=== PATIENT | female | born 1960 | race Caucasian/White ===

== ENCOUNTER → 2016-08-07 | Outpatient (CLI) | payer BC ==
--- NOTE | 2016-08-07 14:41 | DX ---
Chest, PA and Lateral History: Cough and right rib pain, R05, dyspnea COMPARISON: November 06, 2007 Findings: Lungs are clear, without infiltrate or consolidation. Heart size is normal. There is no elfego nopathy or mass lesion. There is no pleural effusion or pneumothorax. No acute right rib fracture zaria ntified. The thoracic spine is normally aligned. There is chronic mild marginal disk space spurring i n the upper thoracic spine. There is no paraspinal stripe widening. Impression: Nothing acute identified. Results called to Mare Moss, as requested.
== END ==
LOC: BMCIMAGING 14:06
PROVIDERS: ATTEND Internal Medicine
DX: R05 Cough (principal)

== ENCOUNTER → 2016-08-15 | Outpatient (CLI) | payer BC, OTHER ==
--- NOTE | 2016-08-15 16:17 | DX ---
PA and Lateral Chest X-ray 1556 hours History: Pleuritic type chest pain. Findings: Heart size and pulmonary vasculature are normal. The lungs are clear without infiltrates or effusions. There is no pneumothorax. The osseous structures are intact. Impression: Normal chest x-ray.
== END ==
LOC: BMCIMAGING 15:55
PROVIDERS: ATTEND Internal Medicine
DX: R07.1 Chest pain on breathing (principal)

== ENCOUNTER → 2016-08-30 | Outpatient (CLI) | payer BC | LOC: FIMAGING 13:04 | DX: Z12.31 Encounter for screening mammogram for malignant neoplasm of breast (principal) | CPT/HCPCS: G0202 ==

== ENCOUNTER 2017-09-16 17:27 | Emergency (ER) | payer OTHER ==
[2017-09-16 17:38] VITALS: PULSE 60; RESP 16; TEMP 97.9
--- NOTE | 2017-09-16 18:35 | EDPHY ---
HPI/HX/ROS/PE/MDM Narrative: CHIEF COMPLAINT: Left leg DVT. HISTORY OF PRESENT ILLNESS: This patient is a 57 y/o female s/p left knee ACL repair 09/13/17 presenting for evaluation of DVT diagnosed today by ultrasound. She has family history of DVT in her mother, also after surgery. Today, she was evaluated by her orthopedic surgeon, Dr. Garcia, for left leg pain and swelling. She was referred for an ultrasound, and the study read this afternoon by Dr. Gutierrez reveals three DVTs : in the proximal femoral vein, the popliteal vein, and one of the two peroneal veins in the proximal calf. Otherwise, the patient has had a routine postoperative course. She is no longer taking narcotic medications due to side effects. She endorses some mild nausea. Additionally, she has had some mild low back pain. No upper back pain, chest pain, shortness of breath, cold or cough symptoms, or other associated symptoms. The patient denies any personal or family history of clotting disorders. There is family history of stroke in both of her parents. No fever, chills, palpitations, vomiting, diarrhea, urinary complaints, headache, lightheadedness. REVIEW OF SYSTEMS: Aside from elements discussed in the HPI, a comprehensive 10-point review of systems was reviewed and is negative. PAST MEDICAL HISTORY: Thyroid disorder. SOCIAL HISTORY: at bedside. . Lives in [place]. PCP: Dr. Carreno. VITAL SIGNS: Reviewed by me GENERAL: Well-developed, well-nourished, resting comfortably in no respiratory distress. HEENT: Benign LUNGS: Clear to auscultation bilaterally. CARDIAC: Regular rate and rhythm, no rubs, murmurs or gallops. ABDOMEN: Soft, nontender. BACK: No CVA tenderness. EXTREMITIES: Left leg: Calf swollen but soft. Thigh moderately swollen. Knee diffusely swollen. Surgical site to left knee appears well-healing, no erythema , warmth, or drainage. Foot is warm, pedal pulses equal. Range of motion is normal throughout. NEURO: Alert and oriented, grossly nonfocal. SKIN: Warm and dry, no rash. PSYCHIATRIC: Normal mentation, no agitation. Portions of this note were transcribed by a bacteriologist medical. I personally performed a history, physical exam, medical decision making, and confirmed accuracy of information the transcribed note. ED Course: 57 y/o female s/p left ACL repair 09/12/17 presents with multiple left lower extremities diagnosed by ultrasound today. Left calf and thigh are swollen but soft. Left knee swollen with well-healing surgical incisions, no signs of infection. Plan to discharge with prescription for Xarelto 15mg BID. Plan to consult with the patient's orthopedic surgeon and primary care provider. 18:[address] Garcia, the patient's orthopedic surgeon. He is comfortable with outpatient followup for this patient with her primary care provider, Dr. Carreno. 19:[address] Carreno, the patient's primary care provider. The patient will follow up with her tomorrow. Plan to discharge home in good condition as above with Xarelto. MDM: Differential diagnosis for the patient's primary complaint of leg swelling was considered including but not limited to cellulitis, hypoalbuminemia, congestive heart failure, cor pulmonale, chronic venous stasis and DVT. - Data Points Imaging Results: Imaging Impressions Extremity Venous Study 09/16/17 16:45 Impression: 1. Short segment of nonocclusive deep venous thrombosis in the proximal femoral vein in the groin. 2. Deep venous thrombosis in the popliteal vein and one of the two peroneal veins in the proximal calf. Findings discussed with physician, Homer Garcia M.D., on September 16, 2017 at 1720. E:RH/amm Medications Given: Discontinued Medications Rivaroxaban (Xarelto) 15 mg PO EDNOW ONE Stop: 09/16/17 18:47 Last Admin: 09/16/17 19:14 Dose: 15 mg General Initial Vital Signs: Initial Vital Signs Temperature (C) 36.6 C 09/16/17 17:34 Heart Rate 60 09/16/17 17:34 Respiratory Rate 16 09/16/17 17:34 Blood Pressure 145/86 H 09/16/17 17:34 O2 Sat (%) 96 09/16/17 17:34 O2 Delivery Mode Room Air Allergies/Adverse Reactions: prednisone Allergy (Intermediate, Verified 09/16/17 17:38) swelling tongue prochlorperazine [From Compazine] Allergy (Intermediate, Verified 09/16/17 17:38 ) swelling tongue Home Medications: Medication Instructions Recorded Levothyroxine [Synthroid 100 mcg 100 mcg PO DAILY06 09/16/17 (*)] Rivaroxaban [Xarelto 15mg (*)] 15 mg PO BID 21 Days #42 tab 09/16/17 Departure - Departure Disposition: Home, Routine, Self-Care Clinical Impression: DVT (deep venous thrombosis) Condition: Good Instructions: Deep Vein Thrombosis (ED) Additional Instructions: 1. Take Xarelto as prescribed. 2. Follow up with Dr. Carreno this week for continued evaluation and management of your anticoagulant medication. 3. Return to the emergency department for increased pain or swelling in your leg , chest pain, back pain, difficulty breathing, fever, or other worsening of condition. 4. Continue to follow up with Dr. Garcia as scheduled. Referrals: Glenda Carreno MD [Primary Care Provider] - As per Instructions Homer Garcia MD [Medical Doctor] - As per Instructions Prescriptions: Rivaroxaban [Xarelto 15mg (*)] 15 mg PO BID 21 Days #42 tab Report Scribed for: Claudine Rodriguez Report Scribed by: Luma Fernández Date of Report: 09/16/17 Time of Report: 18:35
[2017-09-16] MEDS ORDERED: RIVAROXABAN 15 MG TAB PO ONE (18:46)
[2017-09-16 19:16] VITALS: BP 133/81; O2SAT 95
== END 2017-09-16 19:29 | disposition home or self-care (01) ==
DX: I82.432 Acute embolism and thrombosis of left popliteal vein (principal)

== ENCOUNTER 2017-09-19 16:21 | Emergency (ER) | payer OTHER ==
[2017-09-19 16:35] VITALS: RESP 18
--- NOTE | 2017-09-19 17:12 | EDPHY ---
General Time Seen by Provider: 09/19/17 16:59 Narrative: CHIEF COMPLAINT: Increasing swelling and pain, known DVTs HISTORY OF PRESENT ILLNESS: Patient complains of acute worsening of swelling in the left lower leg. She had an ACL repair performed on Saturday. She developed DVT, diagnosed on Saturday. She was started on Xarelto 15 mg twice daily on Saturday night. She has been taking this as prescribed and continued her range of motion, weight-bearing as instructed and physical therapy this week. Yesterday evening she noted sudden increase worsen of the swelling after PT. This continued to increase over the evening and today. She now has difficulty ambulating due to the swelling and pain. No numbness or tingling. The pain and swelling is worse with weight- bearing and ambulation. There is minimal improvement when resting and with elevation. No chest pain or shortness of breath. No fever chills. No change in temperature or sensation to the left lower extremity. No fall, trauma or injury. No other associated complaints or modifying factors REVIEW OF SYSTEMS: Ten systems reviewed and are negative unless otherwise noted in the HPI PCP: Dr. Glenda Carreno SPECIALISTS: Dr. Garcia, Orthopedics PAST MEDICAL HISTORY: Hypothyroid, orthopedic injuries PAST SURGICAL HISTORY: Postop day 6 from left ACL repair SOCIAL HISTORY: Nonsmoker. Occasional alcohol use. Works as an artist FAMILY HISTORY: Noncontributory EXAMINATION: General Appearance: Alert, no distress Head: normocephalic, atraumatic Eyes: Pupils equal and round, no conjunctival pallor or injection ENT, Mouth: Mucous membranes moist Neck: Normal inspection, supple, non-tender Respiratory: Lungs are clear to auscultation Cardiovascular: Regular rate and rhythm. Symmetric radial pulses. Right DP pulses 2+, left DP pulses 1+. Right PT pulse 2 +, left PT pulse 1 +. Neurological: A&O, nonfocal Skin: Warm and dry, no rash. No petechiae or purpura. Arthroscopic Surgical incisions on the left knee are clean, dry, intact and covered by Steri-Strips. Extremities: Moderate tenderness of the left knee, thigh, calf. Range of motion of the knee not fully tested due to pain and swelling. Range of motion of the ankles of symmetric. Compartments are soft in all areas the left lower extremity. Psychiatric: Mood and affect normal DIFFERENTIAL DIAGNOSES: Including but not limited to peripheral edema, worsening DVT, DVT, compartment syndrome MDM: 5:12 p.m. Postop day 6 ACL repair with subsequent DVT development of the left, femoral and posterior calf veins. She has been on Xarelto but is concerned of increasing pain and swelling. I do not appreciate any evidence of compartment syndrome on examination. She has no chest pain or shortness of breath. She has been completing her physical therapy and weight-bearing as instructed with no injuries or falls. Her primary concern is worsening DVTs, thus I have ordered an ultrasound for re-evaluation. Vital signs are within normal limits. 6:40 p.m. Ultrasound reveals stable appearance of the femoral and calf vein DVTs. There is no evidence of the left popliteal vein DVT as previously visualized. I have re-evaluated the patient. At this point she is asking to be discharged home. I do feel this is reasonable in that she is stable for discharge. This is likely just postoperative edema and pain. She may need to decrease her physical therapy. She has been in contact with her surgeon by cellphone during her Emergency Department visit. She will be evaluated tomorrow in their office. We discussed discharge home with pain medication, but she would like to take her pain medication that she has at home. We discussed ED precautions for any worsening pain, swelling, numbness, tingling, changes in temperature sensation. She is comfortable this plan and discharged home stable condition. SUPERVISION: Patient was independently examined, but I discussed the case with my primary supervising physician Dr. Fonseca. - Diagnostics Imaging Results: Imaging Impressions Extremity Venous Study 09/19/17 17:12 Impression: 1. Previously identified thrombus in the popliteal vein is no longer seen. 2. Unchanged short segment nonocclusive DVT in the proximal femoral vein. 3. Unchanged thrombosis of one of two posterior tibial veins. - History Smoking Status: Never smoked - Objective Vital Signs: Initial Vital Signs Temperature (C) 98.4 F 09/19/17 16:31 Heart Rate 67 09/19/17 16:31 Respiratory Rate 18 09/19/17 16:31 Blood Pressure 96/63 L 09/19/17 16:31 O2 Sat (%) 96 09/19/17 16:31 O2 Delivery Mode Room Air Allergies/Adverse Reactions: prednisone Allergy (Intermediate, Verified 09/19/17 16:30) swelling tongue prochlorperazine [From Compazine] Allergy (Intermediate, Verified 09/19/17 16:30 ) swelling tongue Home Medications: Medication Instructions Recorded Levothyroxine [Synthroid 100 mcg 100 mcg PO DAILY06 09/16/17 (*)] Rivaroxaban [Xarelto 15mg (*)] 15 mg PO BID 21 Days #42 tab 09/16/17 Departure - Departure Disposition: Home, Routine, Self-Care Clinical Impression: Postoperative edema DVT, lower extremity, proximal, acute Qualifiers: Laterality: left Qualified Code(s): I82.4Y2 - Acute embolism and thrombosis of unspecified deep veins of left proximal lower extremity Condition: Good Instructions: Deep Vein Thrombosis (ED), Leg Edema (ED), Operative Knee Arthroscopy (DC) Additional Instructions: 1. Continue ice and elevation 2. Contact your orthopedic surgeon to be seen tomorrow without fail 3. Return to emergency department tomorrow if unable to be seen by orthopedic surgeon 4. ED precautions as discussed Referrals: Glenda Carreno MD [Primary Care Provider] - As per Instructions Homer Garcia MD [Medical Doctor] - As per Instructions
[2017-09-19 18:08] VITALS: O2SAT 96
[2017-09-19 19:13] VITALS: BP 108/65; PULSE 71; TEMP 98.1
== END 2017-09-19 19:02 | disposition home or self-care (01) ==
DX: M96.89 Other intraoperative and postprocedural complications and disorders of the musculoskeletal system (principal); I82.4Y2 Acute embolism and thrombosis of unspecified deep veins of left proximal lower extremity

== ENCOUNTER → 2017-09-30 | Outpatient (CLI) | payer OTHER | LOC: FIMAGING 09:33 | PROVIDERS: ATTEND Internal Medicine | DX: Z12.31 Encounter for screening mammogram for malignant neoplasm of breast (principal) ==

== ENCOUNTER → 2017-10-28 | Outpatient (CLI) | payer OTHER | LOC: BMCIMAGING 10:07 | PROVIDERS: ATTEND Internal Medicine | DX: Z13.820 Encounter for screening for osteoporosis (principal) ==

== ENCOUNTER → 2018-11-18 | Outpatient (CLI) | payer OTHER | LOC: FIMAGING 15:44 | PROVIDERS: ATTEND Internal Medicine | DX: Z12.31 Encounter for screening mammogram for malignant neoplasm of breast (principal) ==